=== PATIENT | female | born 1940 | race Caucasian/White ===

== ENCOUNTER 2018-02-22 11:39 | Inpatient (IN) ==
[2018-02-22] MEDS ORDERED: KETOROLAC 30 MG/1 ML VIAL IV STA (12:11)
[2018-02-22 13:00] LABS: Apearance,Urine CLEAR (Clear); Bilirubin,Urine Negative (Negative); Blood, Urine Negative (Negative); Glucose,Urine (UA) Negative (Negative); Hyaline Casts,Urine 1 /LPF (0-3); Ketones,Urine 5 mg/dL (Negative); Mucus,Urine Occasional /LPF (Occasional); Nitrite,Urine Negative (Negative); Protein,Urine Negative; RBC,Urine 2 /HPF (0-4); Squamous Epithelial Cell,Urine Occasional /HPF (0-10); Urine Color Yellow (Yellow); Urine Specific Gravity 1.014 (1.001-1.035); Urine Urobilinogen < 2.0 EU/DL (0.2-1.0); WBC,Urine 5 /HPF (0-6)
[2018-02-22 13:06] LABS: Basophils % 0.2 % (0.0-0.8); Eosinophils % 0.1 % (0.00-10.9); Hematocrit 48.2 VOL% (35.7-47.0); Hemoglobin 16.4 GM/DL (12.0-16.0); Immature Granulocytes % 1.1 %; Immature Granulocytes Absolute 0.17 #; Lymphocytes # 1.8 10*3/uL (1.4-4.0); Lymphocytes % 11.7 % (21.3-54.2); Mean Corpuscular Hemoglobin 31 PG (27-34); Mean Corpuscular Volume 91.3 FL (87-102); Mean Platelet Volume 8.9 FL (9.6-12.0); Monocytes # 1.6 10*3/uL (0.11-0.8); Monocytes % 9.9 % (1.7-12.7); Neutrophils # 12.1 10*3/uL (1.4-7.4); Platelet Count 282 T/CUMM (130-400); Red Blood Count 5.28 MC/CUMM (3.8-5.5); Red Cell Distribution Width 14.1 % (9.3-17.3); White Blood Count 15.7 T/CUMM (4-12)
[2018-02-22 13:44] LABS: Alanine Aminotransferase 77 U/L (13-56); Alkaline Phosphatase 125 U/L (45-117); Aspartate Amino Transferase 81 U/L (0-37); Blood Urea Nitrogen 23 MG/DL (7-18); Calcium 9.1 MG/DL (8.5-10.1); Glucose 103 MG/DL (74-106); Osmolality,Calculated 265.7 MOS/KG (273-304); Potassium 4.5 MMOL/L (3.5-5.1); Sodium 131 MMOL/L (136-145); Total Protein 6.7 G/DL (6.4-8.3); Troponin I 0.018 NG/ML (0.00-0.045)
[2018-02-22] MEDS ORDERED: SODIUM CHLORIDE 0.9% 500 ML IV STA (13:47)
[2018-02-22 18:09] LABS: Thyroid Stimulating Hormone 3.1 uIU/ml (0.358-3.74)
[2018-02-22] MEDS: QUEtiapine 25 MG TABLET PO SCH (21:20)
[2018-02-22] MEDS: GABAPENTIN 300 MG CAPSULE PO SCH (21:21)
[2018-02-22] MEDS: CETIRIZINE 10 MG TABLET PO SCH (21:34)
[2018-02-22] MEDS: SODIUM CHLORIDE 0.9% 1,000 ML IV SCH (21:35)
[2018-02-23] MEDS ORDERED: INFLUENZA VIRUS VACCINE 0.5 ML SYRINGE IM ONE (00:03)
[2018-02-23] MEDS: SODIUM CHLORIDE 0.9% 1,000 ML IV SCH ×5 (00:05→23:21)
[2018-02-23 06:29] LABS: Basophils # 0.1 10*3/uL (0.0-0.2); Basophils % 0.4 % (0.0-0.8); Eosinophils # 0.2 10*3/uL (0.0-0.87); Eosinophils % 1.6 % (0.00-10.9); Hematocrit 45.7 VOL% (35.7-47.0); Immature Granulocytes % 0.9 %; Immature Granulocytes Absolute 0.12 #; Lymphocytes # 3.2 10*3/uL (1.4-4.0); Lymphocytes % 24.8 % (21.3-54.2); Mean Corpuscular HGB Conc 32.8 GM/DL (32-36); Mean Corpuscular Hemoglobin 30 PG (27-34); Mean Corpuscular Volume 92.3 FL (87-102); Mean Platelet Volume 9.2 FL (9.6-12.0); Monocytes # 1.8 10*3/uL (0.11-0.8); Monocytes % 13.7 % (1.7-12.7); Neutrophils # 7.5 10*3/uL (1.4-7.4); Neutrophils % 58.6 % (38.7-73.9); Platelet Count 235 T/CUMM (130-400); Red Blood Count 4.95 MC/CUMM (3.8-5.5); Red Cell Distribution Width 14.1 % (9.3-17.3); White Blood Count 12.8 T/CUMM (4-12)
[2018-02-23 06:47] LABS: Albumin 2.7 G/DL (3.4-5.0); Bilirubin,Total 1.1 MG/DL (0.2-1.0); Calcium 8.4 MG/DL (8.5-10.1); Potassium 3.7 MMOL/L (3.5-5.1); Risk Ratio 2.37; Total Protein 5.8 G/DL (6.4-8.3); VLDL CHOLESTEROL 17.6 MG/DL
[2018-02-23] MEDS: FLUTICASONE 50 MCG NASAL SPRAY 16 GM BOTTLE BOTH NARES SCH (09:17)
[2018-02-23] MEDS: amLODIPine 5 MG TABLET PO SCH (09:17)
[2018-02-23] MEDS: LISINOPRIL 20 MG TABLET PO SCH (09:17)
[2018-02-23] MEDS: GABAPENTIN 300 MG CAPSULE PO SCH ×2 (09:18→20:41)
[2018-02-23] MEDS: predniSONE 10 MG TABLET PO SCH (09:18)
[2018-02-23] MEDS: DOCUSATE/SENNA 50-8.6 MG TABLET PO SCH (09:18)
[2018-02-23] MEDS: MULTIVITAMIN (CENTRUM) TABLET PO SCH (09:18)
[2018-02-23] MEDS ORDERED: FAMOTIDINE 20 MG TABLET PO ONE (10:36)
[2018-02-23] MEDS ORDERED: ALBUTEROL/IPRATROPIUM 3 ML NEB RESP TX ONE (10:37)
[2018-02-23 10:56] LABS: Folate 18.8 NG/ML (5.4-24.0)
[2018-02-23] MEDS ORDERED: ceFAZolin 2,000 MG in PREMIX 1 EACH IV ONE (11:00)
[2018-02-23] MEDS ORDERED: LIDOCAINE 1% 20 ML VIAL ONE (12:55)
[2018-02-23] MEDS ORDERED: DEXAMETHASONE 4 MG/1 ML VIAL ONE (12:55)
[2018-02-23] MEDS ORDERED: TISSUE ADHESIVE 1 EACH APPLICATOR TOP ONE (12:57)
[2018-02-23] MEDS ORDERED: KETAMINE 500 MG/10 ML VIAL ONE (14:42)
[2018-02-23] MEDS ORDERED: MIDAZOLAM 2 MG/2 ML VIAL ONE (14:42)
[2018-02-23] MEDS ORDERED: PHENYLEPHRINE 1 MG/10 ML SYRINGE IV ONE (14:43)
[2018-02-23] MEDS ORDERED: SODIUM CHLORIDE 0.9% 100 ML IV ONE (14:43)
[2018-02-23] MEDS ORDERED: PROPOFOL 200 MG/20 ML VIAL IV ONE (14:43)
[2018-02-23] MEDS ORDERED: ETOMIDATE 40 MG/20 ML VIAL IV ONE (14:43)
[2018-02-23] MEDS: DESITIN 4OZ/NYSTATIN 15 GRAM MIXTURE PASTE TOP SCH ×2 (16:12→20:44)
[2018-02-23] MEDS: DOCUSATE SODIUM 100 MG CAPSULE PO SCH (20:41)
[2018-02-23] MEDS: CETIRIZINE 10 MG TABLET PO SCH (20:41)
[2018-02-23] MEDS: QUEtiapine 25 MG TABLET PO SCH (20:41)
[2018-02-23] MEDS: POLYETHYLENE GLYCOL POWDER 17 GM PACK PO SCH (20:42)
[2018-02-23] MEDS: ceFAZolin 2,000 MG in PREMIX 1 EACH IV SCH (22:56)
[2018-02-24] MEDS: ceFAZolin 2,000 MG in PREMIX 1 EACH IV SCH ×2 (06:35→17:56)
[2018-02-24] MEDS: SODIUM CHLORIDE 0.9% 1,000 ML IV SCH ×3 (07:10→23:22)
[2018-02-24] MEDS ORDERED: INFLUENZA VIRUS VACCINE 0.5 ML SYRINGE IM ONE (09:00)
[2018-02-24] MEDS: FLUTICASONE 50 MCG NASAL SPRAY 16 GM BOTTLE BOTH NARES SCH (09:50)
[2018-02-24] MEDS: DOCUSATE SODIUM 100 MG CAPSULE PO SCH ×2 (09:51→21:01)
[2018-02-24] MEDS: LISINOPRIL 20 MG TABLET PO SCH (09:51)
[2018-02-24] MEDS: predniSONE 10 MG TABLET PO SCH (09:51)
[2018-02-24] MEDS: amLODIPine 5 MG TABLET PO SCH (09:52)
[2018-02-24] MEDS: DOCUSATE/SENNA 50-8.6 MG TABLET PO SCH (09:52)
[2018-02-24] MEDS: MULTIVITAMIN (CENTRUM) TABLET PO SCH (09:52)
[2018-02-24] MEDS: GABAPENTIN 300 MG CAPSULE PO SCH ×2 (09:52→21:02)
[2018-02-24] MEDS: POLYETHYLENE GLYCOL POWDER 17 GM PACK PO SCH ×2 (09:59→21:02)
[2018-02-24] MEDS: DESITIN 4OZ/NYSTATIN 15 GRAM MIXTURE PASTE TOP SCH ×2 (14:41→21:02)
[2018-02-24] MEDS ORDERED: BISACODYL 10 MG SUPP RECTAL ONE (16:41)
[2018-02-24] MEDS: CETIRIZINE 10 MG TABLET PO SCH (21:02)
[2018-02-24] MEDS: QUEtiapine 25 MG TABLET PO SCH (21:02)
[2018-02-25] MEDS: SODIUM CHLORIDE 0.9% 1,000 ML IV SCH ×2 (04:02→06:05)
[2018-02-25 05:34] LABS: Basophils % 0.4 % (0.0-0.8); Eosinophils # 0.2 10*3/uL (0.0-0.87); Eosinophils % 2.3 % (0.00-10.9); Hematocrit 40.8 VOL% (35.7-47.0); Hemoglobin 13.3 GM/DL (12.0-16.0); Immature Granulocytes % 1.4 %; Immature Granulocytes Absolute 0.13 #; Lymphocytes # 2.4 10*3/uL (1.4-4.0); Lymphocytes % 25.1 % (21.3-54.2); Mean Corpuscular HGB Conc 32.6 GM/DL (32-36); Mean Corpuscular Hemoglobin 31 PG (27-34); Mean Platelet Volume 9.1 FL (9.6-12.0); Monocytes # 1.4 10*3/uL (0.11-0.8); Neutrophils # 5.3 10*3/uL (1.4-7.4); Neutrophils % 55.8 % (38.7-73.9); Red Blood Count 4.34 MC/CUMM (3.8-5.5); Red Cell Distribution Width 13.9 % (9.3-17.3); White Blood Count 9.5 T/CUMM (4-12)
[2018-02-25 05:48] LABS: Platelet Count 187 T/CUMM (130-400)
[2018-02-25 05:51] LABS: Albumin 2.4 G/DL (3.4-5.0); Bilirubin,Total 0.8 MG/DL (0.2-1.0); Calcium 7.5 MG/DL (8.5-10.1); Osmolality,Calculated 276.4 MOS/KG (273-304); Potassium 3.7 MMOL/L (3.5-5.1); Total Protein 5.2 G/DL (6.4-8.3)
[2018-02-25] MEDS: predniSONE 10 MG TABLET PO SCH (08:17)
[2018-02-25] MEDS: MULTIVITAMIN (CENTRUM) TABLET PO SCH (08:17)
[2018-02-25] MEDS: amLODIPine 5 MG TABLET PO SCH (08:17)
[2018-02-25] MEDS: POLYETHYLENE GLYCOL POWDER 17 GM PACK PO SCH ×2 (08:18→22:01)
[2018-02-25] MEDS: GABAPENTIN 300 MG CAPSULE PO SCH ×2 (08:18→22:00)
[2018-02-25] MEDS: DOCUSATE/SENNA 50-8.6 MG TABLET PO SCH (08:18)
[2018-02-25] MEDS: DOCUSATE SODIUM 100 MG CAPSULE PO SCH ×2 (08:18→22:01)
[2018-02-25] MEDS: LISINOPRIL 20 MG TABLET PO SCH (08:18)
[2018-02-25] MEDS: DESITIN 4OZ/NYSTATIN 15 GRAM MIXTURE PASTE TOP SCH ×2 (08:22→22:05)
[2018-02-25] MEDS: CALCIUM (CARBONATE)/VITAMIN D 600 MG-400 UNIT TABLET PO SCH ×2 (09:06→22:00)
[2018-02-25] MEDS: FLUTICASONE 50 MCG NASAL SPRAY 16 GM BOTTLE BOTH NARES SCH (09:06)
[2018-02-25] MEDS: DOXYCYCLINE HYCLATE 100 MG CAPSULE PO SCH ×2 (15:17→22:01)
[2018-02-25] MEDS: QUEtiapine 25 MG TABLET PO SCH (22:01)
[2018-02-25] MEDS: CETIRIZINE 10 MG TABLET PO SCH (22:01)
[2018-02-26] MEDS: DOCUSATE SODIUM 100 MG CAPSULE PO SCH (08:54)
[2018-02-26] MEDS: MULTIVITAMIN (CENTRUM) TABLET PO SCH (08:54)
[2018-02-26] MEDS: CALCIUM (CARBONATE)/VITAMIN D 600 MG-400 UNIT TABLET PO SCH (08:54)
[2018-02-26] MEDS: amLODIPine 5 MG TABLET PO SCH (08:55)
[2018-02-26] MEDS: GABAPENTIN 300 MG CAPSULE PO SCH (08:55)
[2018-02-26] MEDS: POLYETHYLENE GLYCOL POWDER 17 GM PACK PO SCH (08:55)
[2018-02-26] MEDS: predniSONE 10 MG TABLET PO SCH (08:55)
[2018-02-26] MEDS: LISINOPRIL 20 MG TABLET PO SCH (08:55)
[2018-02-26] MEDS: DOXYCYCLINE HYCLATE 100 MG CAPSULE PO SCH (08:56)
[2018-02-26] MEDS: DOCUSATE/SENNA 50-8.6 MG TABLET PO SCH (08:56)
[2018-02-26] MEDS: DESITIN 4OZ/NYSTATIN 15 GRAM MIXTURE PASTE TOP SCH (08:56)
[2018-02-26] MEDS: FLUTICASONE 50 MCG NASAL SPRAY 16 GM BOTTLE BOTH NARES SCH (09:01)
[2018-02-26 11:44] VITALS: BP 194/97
== END 2018-02-26 13:48 | DRG 478 ==
LOC: EDUNIT# → EDBD → N.ED 11:39 → N.EDINP 14:54 → N.3E 18:04
PROVIDERS: ADMIT Hospitalist; ATTEND Hospitalist

== ENCOUNTER 2018-08-24 08:23 | Inpatient (IN) ==
[2018-08-24 08:56] LABS: Basophils # 0.1 10*3/uL (0.0-0.2); Basophils % 0.7 % (0.0-0.8); Eosinophils # 0.6 10*3/uL (0.0-0.87); Eosinophils % 5.3 % (0.00-10.9); Hematocrit 47.5 VOL% (35.7-47.0); Hemoglobin 14.9 GM/DL (12.0-16.0); Immature Granulocytes % 0.6 %; Immature Granulocytes Absolute 0.06 #; Lymphocytes # 1.8 10*3/uL (1.4-4.0); Lymphocytes % 17.1 % (21.3-54.2); Mean Corpuscular HGB Conc 31.4 GM/DL (32-36); Mean Corpuscular Hemoglobin 31 PG (27-34); Mean Corpuscular Volume 98.1 FL (87-102); Mean Platelet Volume 8.4 FL (9.6-12.0); Monocytes # 1.1 10*3/uL (0.11-0.8); Monocytes % 10.3 % (1.7-12.7); Neutrophils # 7.1 10*3/uL (1.4-7.4); Platelet Count 277 T/CUMM (130-400); Red Blood Count 4.84 MC/CUMM (3.8-5.5); Red Cell Distribution Width 14.4 % (9.3-17.3); White Blood Count 10.8 T/CUMM (4-12)
[2018-08-24] MEDS ORDERED: ALBUTEROL/IPRATROPIUM 3 ML NEB RESP TX STA (09:04)
[2018-08-24] MEDS ORDERED: LEVOFLOXACIN INJ 500 MG in PREMIX 1 EACH IV STA (09:06)
[2018-08-24 09:12] LABS: Alanine Aminotransferase 36 U/L (13-56); Albumin 3.2 G/DL (3.4-5.0); Alkaline Phosphatase 155 U/L (45-117); Aspartate Amino Transferase 54 U/L (0-37); Blood Urea Nitrogen 18 MG/DL (7-18); Calcium 8.8 MG/DL (8.5-10.1); Glucose 100 MG/DL (74-106); Osmolality,Calculated 267.4 MOS/KG (273-304); Sodium 133 MMOL/L (136-145); Total Protein 7.8 G/DL (6.4-8.3)
[2018-08-24 09:13] LABS: Troponin I 0.121 NG/ML (0.00-0.045)
[2018-08-24] MEDS ORDERED: ACETAMINOPHEN 325 MG TABLET PO PRN (11:03)
[2018-08-24] MEDS ORDERED: ALBUTEROL/IPRATROPIUM 3 ML NEB RESP TX PRN (11:07)
[2018-08-24] MEDS ORDERED: ENOXAPARIN 40 MG/0.4 ML SYRINGE SUBCUT SCH (11:30)
[2018-08-24 11:44] LABS: Risk Ratio 3.05; Thyroid Stimulating Hormone 5.81 uIU/ml (0.358-3.74); VLDL CHOLESTEROL 11.8 MG/DL
[2018-08-24] MEDS: LACTULOSE 20 GM/30 ML UDCUP PO SCH ×3 (12:57→22:12)
[2018-08-24] MEDS ORDERED: PROPOFOL 1,000 MG/100 ML BOTTLE IV ONE (15:17)
[2018-08-24] MEDS ORDERED: MIDAZOLAM 10 MG/2 ML VIAL ONE (15:18)
[2018-08-24] MEDS ORDERED: SUCCINYLCHOLINE 200 MG/10 ML VIAL ONE (15:18)
[2018-08-24] MEDS ORDERED: ETOMIDATE 20 MG/10 ML VIAL IV ONE ×2 (15:20→15:28)
[2018-08-24] MEDS ORDERED: SODIUM CHLORIDE 0.9% 1,000 ML IV ONE (15:41)
[2018-08-24] MEDS ORDERED: PROPOFOL 1,000 MG/100 ML BOTTLE IV SCH (16:00)
[2018-08-24] MEDS ORDERED: SODIUM CHLORIDE 0.9% 1,000 ML IV SCH (16:00)
[2018-08-24] MEDS ORDERED: PIPERACILLIN/TAZOBACTAM 3,375 MG in SODIUM CHLORIDE 0.9% 100 ML IV SCH (16:00)
[2018-08-24] MEDS ORDERED: FUROSEMIDE 40 MG/4 ML VIAL IV SCH (16:00)
[2018-08-24 16:15] LABS: Calcium 8.4 MG/DL (8.5-10.1); Osmolality,Calculated 276.1 MOS/KG (273-304); Potassium 4.1 MMOL/L (3.5-5.1)
[2018-08-24 16:20] LABS: Pt O2 Delivery Device Ventilator
[2018-08-24 16:22] LABS: ABG Base Excess -0.8 MMOL/L (-2.5-2.5); ABG HCO3 23.8 MMOL/L (20-26); ABG Oxygen Saturation 99.8 % (95-100); ABG PCO2 68.6 MM HG (35-48); ABG PH 7.236 (7.35-7.45); ABG TCO2 25.9 MMOL/L (23-27)
[2018-08-24] MEDS ORDERED: SODIUM BICARBONATE 50 MEQ/50 ML VIAL IV ONE (16:48)
[2018-08-24 17:33] LABS: Pt O2 Delivery Device Ventilator
[2018-08-24 17:34] LABS: ABG Base Excess 8.6 MMOL/L (-2.5-2.5); ABG HCO3 32.4 MMOL/L (20-26); ABG Oxygen Saturation 99.6 % (95-100); ABG PH 7.377 (7.35-7.45); ABG TCO2 31.8 MMOL/L (23-27)
[2018-08-24 18:13] LABS: Apearance,Urine Slightly Hazy (Clear); Bacteria,Urine Few /HPF (Few); Bilirubin,Urine Negative (Negative); Blood, Urine Small mg/dL (Negative); Glucose,Urine (UA) Negative (Negative); Hyaline Casts,Urine 153 /LPF (0-3); Ketones,Urine Negative (Negative); Mucus,Urine Occasional /LPF (Occasional); Nitrite,Urine Negative (Negative); Protein,Urine 30 MG/DL; RBC,Urine 5 /HPF (0-4); Squamous Epithelial Cell,Urine Occasional /HPF (0-10); Urine Color Yellow (Yellow); Urine Specific Gravity 1.013 (1.001-1.035); Urine Urobilinogen < 2.0 EU/DL (0.2-1.0); WBC,Urine 7 /HPF (0-6)
[2018-08-24] MEDS ORDERED: NOREPINEPHRINE 4 MG/4 ML VIAL IV ONE (18:33)
[2018-08-24] MEDS ORDERED: NOREPINEPHRINE 8 MG in SODIUM CHLORIDE 0.9% 242 ML IV PRN (18:41)
[2018-08-24] MEDS ORDERED: ALBUTEROL/IPRATROPIUM 3 ML NEB RESP TX SCH (19:00)
[2018-08-24] MEDS ORDERED: AMIODARONE 150 MG/3 ML VIAL ONE ×2 (19:57→19:58)
[2018-08-24] MEDS ORDERED: MEMANTINE 10 MG TABLET PO SCH (20:00)
[2018-08-24] MEDS ORDERED: QUEtiapine 25 MG TABLET PO SCH (20:00)
[2018-08-24] MEDS ORDERED: GABAPENTIN 300 MG CAPSULE PO SCH (20:00)
[2018-08-24 20:55] VITALS: BP 95/69
[2018-08-24] MEDS ORDERED: VANCOMYCIN INJ 1,000 MG in SODIUM CHLORIDE 0.9% 250 ML IV SCH (21:00)
[2018-08-25] MEDS ORDERED: MULTIVITAMIN (CENTRUM) TABLET PO SCH (08:00)
[2018-08-25] MEDS ORDERED: PANTOPRAZOLE 40 MG TABLET PO SCH (09:00)
[2018-08-25] MEDS ORDERED: LOSARTAN 25 MG TABLET PO SCH (09:00)
[2018-08-25] MEDS ORDERED: ASPIRIN CHEW 81 MG TABLET PO SCH (09:00)
[2018-08-25] MEDS ORDERED: LEVOFLOXACIN INJ 500 MG in PREMIX 1 EACH IV SCH (10:00)
== END 2018-08-24 20:08 | disposition expired | DRG 208 ==
LOC: EDBD → EDUNIT# → N.ED 08:23 → N.EDINP 11:03 → SUATTDRO 11:03 → N.EDINP 13:04 → N.TELES 13:13 → N.CVR 15:39 → N.ICU 18:25
PROVIDERS: ADMIT Emergency Medicine; ATTEND Internal Medicine